=== PATIENT | female | born 2000 | race Caucasian/White ===

== ENCOUNTER 2019-07-13 22:19 | Emergency (ER) | payer OTHER ==
[2019-07-13] MEDS ORDERED: Amoxicillin/Clavulanate TAB* 875 MG PO ONE (23:40)
[2019-07-13] MEDS ORDERED: predniSONE TAB* 20 MG PO ONE (23:40)
--- NOTE | 2019-07-13 23:46 | ED ---
Throat Pain/Nasal Congestion - HPI Summary HPI Summary: 18 year old female presents with swelling around her left eye. States she may have gotten bite by a spider last night. She states the area is itchy. She states some Benadryl without relief. No fevers. No rash noted to the area. No chest pain or shortness breath. No sore throat. This has never happened before. Has no medical conditions. - History of Current Complaint Chief Complaint: EDEyeProblem Time Seen by Provider: 07/13/19 23:21 - Allergies/Home Medications Allergies/Adverse Reactions: Allergies Allergy/AdvReac Type Severity Reaction Status Date / Time tree nut Allergy Itching Verified 07/13/19 22:30 PMH/Surg Hx/FS Hx/Imm Hx Endocrine/Hematology History: Denies: Hx Anticoagulant Therapy Respiratory History: Denies: Hx Asthma Infectious Disease History: No Infectious Disease History: Denies: Traveled Outside the [place] in Last 30 Days - Family History Known Family History: Positive: Non-Contributory - Social History Alcohol Use: None Substance Use Type: Reports: None Smoking Status (MU): Never Smoked Tobacco Review of Systems Negative: Fever Positive: Other - swelling around left eye Negative: Chest Pain Negative: Shortness Of Breath All Other Systems Reviewed And Are Negative: Yes Physical Exam Triage Information Reviewed: Yes Vital Signs On Initial Exam: Initial Vitals Temp Pulse Resp BP Pulse Ox 99.7 F 97 18 168/117 99 07/13/19 22:28 07/13/19 22:28 07/13/19 22:28 07/13/19 22:28 07/13/19 22:28 Vital Signs Reviewed: Yes Appearance: Positive: Well-Appearing Skin: Positive: Warm, Dry Head/Face: Positive: Normal Head/Face Inspection Eyes: Positive: EOMI, KATHY, Conjunctiva Clear, Other: - swelling without erythema or warm around left eye ENT: Positive: Pharynx normal, TMs normal Respiratory/Lung Sounds: Positive: Clear to Auscultation, Breath Sounds Present Cardiovascular: Positive: Normal, RRR Musculoskeletal: Positive: Normal Neurological: Positive: Normal Psychiatric: Positive: Normal Diagnostics - Vital Signs Vital Signs Temp Pulse Resp BP Pulse Ox 07/13/19 22:28 99.7 F 97 18 168/117 99 - Laboratory Lab Statement: Any lab studies that have been ordered have been reviewed, and results considered in the medical decision making process. EENT Course/Dx - Course Course Of Treatment: 18 year old female presents with swelling around her left eye. States she may have gotten bite by a spider last night. She states the area is itchy. She states some Benadryl without relief. No fevers. No rash noted to the area. No chest pain or shortness breath. No sore throat. This has never happened before. Has no medical conditions. On exam has edema noted around her left eye. Appears more like allergic reaction. due to the location of swelling we'll treat for potential periorbital cellulitis with Augmentin. Will place on steroid. told follow up with primary. Patient understands agrees with plan. - Differential Diagnoses Differential Diagnoses: Allergic Rhinitis, Periorbital/Orbital Cellulitis, Other - allergic reaction - Diagnoses Provider Diagnoses: Periorbital swelling Discharge ED - Sign-Out/Discharge Documenting (check all that apply): Patient Departure Patient Received Moderate/Deep Sedation with Procedure: No - Discharge Plan Condition: Good Disposition: HOME Prescriptions: Amoxicillin/Clavulanate TAB* [Augmentin TAB 875*] 875 mg PO BID #13 tab predniSONE TAB* [Deltasone TAB*] 50 mg PO DAILY #4 tab Referrals: No Primary Care Phys,NOPCP [Primary Care Provider] - Additional Instructions: take prednisone once a day for 4 days take augmentin twice a day for 7 days take benadryl every 6 hours ice area take tyenlol or ibuprofen every 6 hours follow up in two days for wound check Return to ED if develop any new or worsening symptoms - Billing Disposition and Condition Condition: GOOD Disposition: Home
[2019-07-14] VITALS: BP 128/76
== END 2019-07-14 00:15 | disposition home or self-care (01) ==
LOC: ED 22:19
DX: R22.0 Localized swelling, mass and lump, head (principal)
CPT/HCPCS: 99282; A9270-GY; J7512